=== PATIENT | male | born 1945 ===

== ENCOUNTER → 2018-12-07 06:00 | Outpatient (CLI) | payer OTHER | END | disposition home or self-care (01) | LOC: LAB 06:00 → EDSTATUS 12-10 09:51 → AMB-ENDOS 12-10 13:20 | DX: K62.5 Hemorrhage of anus and rectum (principal); K62.89 Other specified diseases of anus and rectum; K64.1 Second degree hemorrhoids; Z01.812 Encounter for preprocedural laboratory examination ==

== ENCOUNTER 2020-07-06 22:24 | Emergency (ER) | payer OTHER ==
[~2020-07-06] VITALS: Ht 172.7 cm; Wt 79.4 kg
[2020-07-06] MEDS ORDERED: LEVOTHYROXINE75 MCG PO (22:33)
[2020-07-06] MEDS ORDERED: LISINOPRIL20 MG PO (22:33)
[2020-07-07] MEDS ORDERED: ANALPRAM HC 2.530 GM RECTAL (00:54)
== END 2020-07-07 01:29 | disposition home or self-care (01) ==
LOC: ER 22:24
DX: K64.8 Other hemorrhoids (principal)